=== PATIENT | female | born 1990 | race Two or more races ===

== ENCOUNTER 2019-06-22 17:08 | Emergency (ER) | payer OTHER ==
[~2019-06-22] VITALS: Ht 157.5 cm; Wt 61.2 kg
[2019-06-22 18:53] VITALS: BP 141/72
[2019-06-22] MEDS ORDERED: IBUPROFEN 800 MG TAB PO ONE (19:15)
== END 2019-06-22 19:58 | disposition home or self-care (01) ==
LOC: ER 17:08
DX: H66.91 Otitis media, unspecified, right ear (principal); H60.91 Unspecified otitis externa, right ear